=== PATIENT | male | born 1995 | race American Indian/Alaskan Native ===

== ENCOUNTER 2022-04-15 12:08 | Emergency (ER) | payer OTHER ==
[~2022-04-15] VITALS: Ht 175.3 cm; Wt 72.6 kg
[~2022-04-15 12:08] MED LIST: AMOX500 PO; HYDACE5 PO; Omeprazole20 M1 PO; PROM25 PO; Pepcid40 MG PO
== END 2022-04-15 12:44 | disposition home or self-care (01) ==
LOC: ER 12:08
DX: S68.621A Partial traumatic transphalangeal amputation of left index finger, initial encounter (principal); W26.0XXA Contact with knife, initial encounter; Z79.899 Other long term (current) drug therapy
CPT/HCPCS: 99282